=== PATIENT | female | born 1935 | race Caucasian/White ===

== ENCOUNTER 2021-05-31 19:19 | Inpatient (IN) | payer MEDICARE, BC ==
[~2021-05-31] VITALS: Ht 160 cm; Wt 65.8 kg
[2021-05-31 20:03] LABS: BASOPHILS % 0.2 % (0.0-1.0); EOSINOPHILS % 0.3 % (0.0-6.0); HEMATOCRIT 30.5 % (34.2-44.1); HEMOGLOBIN 10.1 g/dL (12.0-16.0); LYMPHOCYTES # (AUTO) 1.9 (1.0-3.2); LYMPHOCYTES % 21.5 % (18.0-39.1); MEAN CORPUSCULAR HGB CONC 33.1 g/dL (31-35); MEAN CORPUSCULAR VOLUME 93.6 fL (81-99); MONOCYTES # (AUTO) 0.7 (0.2-0.8); MONOCYTES % 8.2 % (4.4-11.3); NEUTROPHILS # (AUTO) 6.2 (2.1-6.9); NEUTROPHILS % 69.4 % (38.7-80.0); PLATELET COUNT 197 x10e3/uL (140-360); RED BLOOD COUNT 3.26 x10e6/uL (3.6-5.1); RED CELL DISTRIBUTION WIDTH 13.8 % (11.7-14.4)
[2021-05-31 20:38] LABS: ALBUMIN/GLOBULIN RATIO 1.1 (0.8-2.0); ANION GAP 13.5 mmol/L (8-16); CALCIUM 11.4 mg/dL (8.4-10.2); CREATININE, SERUM 1.06 mg/dL (0.57-1.11); POTASSIUM 3.5 mmol/L (3.5-5.1)
[2021-05-31 20:45] LABS: CREATINE KINASE MB 3.9 ng/mL (0-5.0)
[2021-05-31 21:13] LABS: CLARITY,URINE CLEAR (CLEAR); COLOR,URINE YELLOW (YELLOW)
[2021-05-31 21:14] LABS: KETONES,URINE NEGATIVE (NEGATIVE); LEUKOCYTE ESTERASE ,URINE NEGATIVE (NEGATIVE); NITRITE,URINE NEGATIVE (NEGATIVE); PROTEIN,URINE DIPSTICK NEGATIVE (NEGATIVE); URINE UROBILINOGEN 0.2 mg/dL (0.2 - 1)
[2021-05-31 21:22] LABS: BACTERIA,URINE FEW /HPF; EPITHELIAL CELLS,URINE FEW /LPF; RBC,URINE 0-5 /HPF (0-5); WBC,URINE (MAN) 0-5 /HPF (0-5); YEAST,URINE FEW
[2021-05-31] MEDS ORDERED: ACETAMINOPHEN 325 MG TAB PO PRN ×2 (22:00→22:45)
[2021-05-31] MEDS ORDERED: TRAMADOL HCL 50 MG TAB PO PRN (22:00)
[2021-05-31] MEDS ORDERED: SODIUM CHLORIDE 0.9% 1000ML 1,000 ML IV ONE (22:00)
[2021-05-31] MEDS: CEFTRIAXONE 1 GM in SODIUM CHLORIDE 0.9% 50ML 50 ML IV SCH (22:03)
[2021-05-31] MEDS ORDERED: ASPIRIN CHEW81 MG PO (22:10)
[2021-05-31] MEDS ORDERED: AMLODIPINE BESY10 MG PO (22:10)
[2021-05-31] MEDS ORDERED: PANTOPRAZOLE SO40 MG PO (22:10)
[2021-05-31] MEDS ORDERED: cranberry PO (22:10)
[2021-05-31] MEDS ORDERED: DULCOLAX SUPP10 MG RC (22:10)
[2021-05-31] MEDS ORDERED: PREPARATION H C26 GM TOP (22:10)
[2021-05-31] MEDS ORDERED: biofreeze TOP (22:10)
[2021-05-31] MEDS ORDERED: ACETAMINOPHEN325 M1 PO (22:10)
[2021-05-31] MEDS ORDERED: ULTRAM50 MG PO (22:10)
[2021-05-31] MEDS ORDERED: LIDOCAINE PAIN1 EACH TOP (22:10)
[2021-05-31] MEDS ORDERED: SENOKOT8.6 MG PO (22:10)
[2021-05-31] MEDS ORDERED: LISINOPRIL20 MG PO (22:10)
[2021-05-31] MEDS ORDERED: MEMANTINE HCL5 MG PO (22:10)
[2021-05-31] MEDS ORDERED: ATORVASTATIN CA20 MG PO (22:10)
[2021-05-31] MEDS ORDERED: GABAPENTIN300 MG PO (22:10)
[2021-05-31] MEDS ORDERED: LACTULOSE20 GM/30 M PO (22:10)
[2021-05-31] MEDS ORDERED: MIRALAX17 GM PO (22:10)
[2021-05-31] MEDS ORDERED: TRAZODONE HCL50 MG PO (22:10)
[2021-05-31] MEDS: ALBUTEROL SULF 0.083% NEB SOLN 3 ML NEB NEB SCH (22:20)
[2021-05-31] MEDS ORDERED: BISACODYL 10 MG SUPP PR PRN (22:45)
[2021-05-31] MEDS ORDERED: SENNOSIDES 8.6 MG TAB PO PRN (22:45)
[2021-05-31] MEDS ORDERED: LACTULOSE SYRUP 20 GM/30 ML UDC PO PRN (22:45)
[2021-05-31 22:57] VITALS: BP 125/97
[2021-05-31] MEDS ORDERED: TRAZODONE HCL 50 MG TAB PO ONE (23:15)
[2021-05-31 23:55] VITALS: BP 121/69
[2021-06-01] VITALS (8 sets, daily range): BP systolic 106–142; BP diastolic 38–69
[2021-06-01] MEDS: ALBUTEROL SULF 0.083% NEB SOLN 3 ML NEB NEB SCH ×6 (02:35→22:57)
[2021-06-01 05:50] LABS: BASOPHILS % 0.5 % (0.0-1.0); EOSINOPHILS % 0.4 % (0.0-6.0); HEMATOCRIT 31.1 % (34.2-44.1); HEMOGLOBIN 9.7 g/dL (12.0-16.0); LYMPHOCYTES % 13.9 % (18.0-39.1); MEAN CORPUSCULAR HEMOGLOBIN 30.9 pg (28-32); MEAN CORPUSCULAR HGB CONC 31.2 g/dL (31-35); MONOCYTES # (AUTO) 0.7 (0.2-0.8); MONOCYTES % 9.9 % (4.4-11.3); NEUTROPHILS # (AUTO) 5.5 (2.1-6.9); NEUTROPHILS % 74.9 % (38.7-80.0); PLATELET COUNT 162 x10e3/uL (140-360); RED BLOOD COUNT 3.14 x10e6/uL (3.6-5.1)
[2021-06-01] MEDS: GABAPENTIN 300 MG CAP PO SCH ×3 (06:17→21:10)
[2021-06-01 06:45] LABS: ALBUMIN 2.7 g/dL (3.5-5.0); ANION GAP 12.1 mmol/L (8-16); CALCIUM 10.9 mg/dL (8.4-10.2); CREATININE, SERUM 0.93 mg/dL (0.57-1.11); POTASSIUM 3.1 mmol/L (3.5-5.1)
[2021-06-01 07:18] LABS: CREATINE KINASE MB 3.8 ng/mL (0-5.0)
[2021-06-01] MEDS: ASPIRIN 81 MG CHEW TAB PO SCH (08:28)
[2021-06-01] MEDS: POLYETHYLENE GLYCOL 3350 17 GM PACK PO SCH (08:28)
[2021-06-01] MEDS: MEMANTINE 10 MG TAB PO SCH (08:29)
[2021-06-01] MEDS: PANTOPRAZOLE SOD 40 MG TABEC PO SCH (08:30)
[2021-06-01] MEDS ORDERED: LISINOPRIL 20 MG TAB PO SCH (09:00)
[2021-06-01] MEDS ORDERED: AMLODIPINE BESYLATE 10 MG TAB PO SCH (09:00)
[2021-06-01] MEDS ORDERED: POTASSIUM CHLORIDE 20 MEQ TAB CR PO ONE (12:30)
[2021-06-01 15:08] LABS: CREATINE KINASE MB 3.7 ng/mL (0-5.0)
[2021-06-01] MEDS: TRAZODONE HCL 50 MG TAB PO SCH (21:00)
[2021-06-01] MEDS: ATORVASTATIN 40 MG TAB PO SCH (21:10)
[2021-06-01] MEDS: CEFTRIAXONE 1 GM in SODIUM CHLORIDE 0.9% 50ML 50 ML IV SCH (21:10)
[2021-06-02] VITALS (8 sets, daily range): BP systolic 121–134; BP diastolic 51–62
[2021-06-02] MEDS: ALBUTEROL SULF 0.083% NEB SOLN 3 ML NEB NEB SCH ×6 (02:37→22:52)
[2021-06-02] MEDS: GABAPENTIN 300 MG CAP PO SCH ×3 (05:35→22:00)
[2021-06-02] MEDS: POLYETHYLENE GLYCOL 3350 17 GM PACK PO SCH (09:59)
[2021-06-02] MEDS: ASPIRIN 81 MG CHEW TAB PO SCH (09:59)
[2021-06-02] MEDS: PANTOPRAZOLE SOD 40 MG TABEC PO SCH (10:00)
[2021-06-02] MEDS: MEMANTINE 10 MG TAB PO SCH (10:00)
[2021-06-02] MEDS ORDERED: POTASSIUM CHLORIDE 20 MEQ TAB CR PO ONE (12:00)
[2021-06-02] MEDS: FLUCONAZOLE 100 MG/NS 50 ML 50 ML IV SCH (12:15)
[2021-06-02] MEDS: ATORVASTATIN 40 MG TAB PO SCH (20:31)
[2021-06-02] MEDS: TRAZODONE HCL 50 MG TAB PO SCH (20:32)
[2021-06-02] MEDS: CEFTRIAXONE 1 GM in SODIUM CHLORIDE 0.9% 50ML 50 ML IV SCH (21:16)
[2021-06-02] MEDS ORDERED: AZITHROMYCIN 250 MG TAB PO SCH (23:00)
[2021-06-03 00:14] VITALS: BP 135/63
[2021-06-03 03:51] VITALS: BP 150/66
[2021-06-03] MEDS: ALBUTEROL SULF 0.083% NEB SOLN 3 ML NEB NEB SCH ×4 (03:52→15:23)
[2021-06-03] MEDS: GABAPENTIN 300 MG CAP PO SCH ×2 (05:29→14:28)
[2021-06-03 05:35] LABS: BASOPHILS % 0.4 % (0.0-1.0); EOSINOPHILS % 0.5 % (0.0-6.0); HEMATOCRIT 29.8 % (34.2-44.1); HEMOGLOBIN 9.6 g/dL (12.0-16.0); LYMPHOCYTES # (AUTO) 1.4 (1.0-3.2); LYMPHOCYTES % 18.1 % (18.0-39.1); MEAN CORPUSCULAR HGB CONC 32.2 g/dL (31-35); MEAN CORPUSCULAR VOLUME 96.1 fL (81-99); MONOCYTES # (AUTO) 0.7 (0.2-0.8); MONOCYTES % 8.8 % (4.4-11.3); NEUTROPHILS # (AUTO) 5.6 (2.1-6.9); NEUTROPHILS % 71.6 % (38.7-80.0); PLATELET COUNT 194 x10e3/uL (140-360); RED CELL DISTRIBUTION WIDTH 14.1 % (11.7-14.4)
[2021-06-03 05:53] LABS: ANION GAP 13.1 mmol/L (8-16); CALCIUM 11.3 mg/dL (8.4-10.2); CREATININE, SERUM 0.83 mg/dL (0.57-1.11); POTASSIUM 4.1 mmol/L (3.5-5.1)
[2021-06-03 08:00] VITALS: BP 146/77
[2021-06-03] MEDS: MEMANTINE 10 MG TAB PO SCH (09:22)
[2021-06-03] MEDS: PANTOPRAZOLE SOD 40 MG TABEC PO SCH (09:22)
[2021-06-03] MEDS: POLYETHYLENE GLYCOL 3350 17 GM PACK PO SCH (09:22)
[2021-06-03] MEDS: ASPIRIN 81 MG CHEW TAB PO SCH (09:22)
[2021-06-03 11:36] VITALS: BP 159/84
[2021-06-03] MEDS: FLUCONAZOLE 100 MG/NS 50 ML 50 ML IV SCH (12:03)
[2021-06-03] MEDS ORDERED: SODIUM CHLORIDE 0.9% 1000ML 1,000 ML ONE (12:05)
[2021-06-03] MEDS ORDERED: Cephalexin PO (14:38)
[2021-06-03] MEDS ORDERED: DIFLUCAN100 MG PO (14:38)
[2021-06-03] MEDS ORDERED: AZITHROMYCIN250 MG PO (14:38)
[2021-06-03] MEDS ORDERED: CEPHALEXIN 500 MG CAP PO SCH (21:00)
[2021-06-04] MEDS ORDERED: FLUCONAZOLE 100 MG TAB PO SCH (09:00)
== END 2021-06-03 17:18 | DRG 193 ==
LOC: ER 19:27 → ERHOLD 21:59 → MED/SURG 22:59
PROVIDERS: ADMIT Internal Medicine; ATTEND Internal Medicine
DX: J18.9 Pneumonia, unspecified organism (principal); J96.01 Acute respiratory failure with hypoxia; N17.9 Acute kidney failure, unspecified; B48.8 Other specified mycoses; R33.9 Retention of urine, unspecified; N18.9 Chronic kidney disease, unspecified; E83.52 Hypercalcemia; E78.5 Hyperlipidemia, unspecified; F03.90 Unspecified dementia, unspecified severity, without behavioral disturbance, psychotic disturbance, mood disturbance, and anxiety; Z86.73 Personal history of transient ischemic attack (TIA), and cerebral infarction without residual deficits; I12.9 Hypertensive chronic kidney disease with stage 1 through stage 4 chronic kidney disease, or unspecified chronic kidney disease
CPT/HCPCS: 36415; 51700; 70450; 71045; 80048; 80053; 81001; 82550; 82553; 83605; 83880; 83970; 84484; 85025; 87040; 87086; 93005; 94640; 94799; 97139; 99284; J0456; J0696; J1450; J7030; J7050; U0002